=== PATIENT | female | born 1995 | race Caucasian/White ===

== ENCOUNTER 2019-11-29 08:39 | Day surgery (SDC) | payer OTHER ==
[~2019-11-29] VITALS: Ht 154.9 cm; Wt 63.5 kg
[2019-11-29] MEDS ORDERED: fentaNYL citrate 0.05 MG/ML VIAL ONE (11:07)
[2019-11-29] MEDS ORDERED: MIDAZOLAM 2 MG/2 ML VIAL ONE (11:07)
[2019-11-29] MEDS ORDERED: LIDOCAINE 2% 100 MG/5 ML UJET TP ONE (11:07)
[2019-11-29] MEDS ORDERED: diphenhydrAMINE 50 MG/ML VIAL ONE (11:55)
== END 2019-11-29 12:45 | disposition home or self-care (01) ==
LOC: MDS 08:39 → MFCC 08:43 → MDS 12:45
PROVIDERS: ATTEND Internal Medicine Gastroenterology
DX: K62.5 Hemorrhage of anus and rectum (principal); K51.90 Ulcerative colitis, unspecified, without complications; Z79.899 Other long term (current) drug therapy; Z11.59 Encounter for screening for other viral diseases; Z20.828 Contact with and (suspected) exposure to other viral communicable diseases
CPT/HCPCS: 45380; 81025; 88305; J1200; J2250; J3010; U0003